=== PATIENT | male | born 1990 | race Caucasian/White ===

== ENCOUNTER 2016-11-04 06:33 | Inpatient (IN) | payer OTHER ==
--- NOTE | ~2016-11-04 | PA ---
Unit #: [id number] #: [id number] Patient: JESSICA COPPOLA [id number] [facility] [address] [place] [address] [id number] I MR#: [id number] NAME: JESSICA COPPOLA ROOM: P256 Age: 26 Sex: M Admission Date: 11/04/2016 : 1990 Date of Assessment: 11/05/2016 Attending Physician: Damon Thorpe M.D. Admitting Physician: Damon Thorpe M.D. Primary Care Physician: Primary Care Physician No PSYCHIATRIC ASSESSMENT DATE OF ASSESSMENT 11/05/2016. INFORMANTS Patient, reliable; [facility], reliable; [facility], reliable. CHIEF COMPLAINT Overdose. HISTORY OF PRESENT ILLNESS Mr. Coppola is a 26-year-old man, who apparently took an overdose when his girlfriend left him and took an overdose of medications belonging to his grandmother. He was evaluated at [facility] and could not contract for safety in the outpatient setting. [facility]. PAST PSYCHIATRIC HISTORY The patient denies any previous inpatient or outpatient psychiatric care. He has no current psychiatric medications. FAMILY PSYCHIATRIC HISTORY No reported family history of chemical dependence or substance abuse. SOCIAL HISTORY The patient is single and recently broke up with a girlfriend. He is a high-school graduate, but has had difficulty maintaining employment for the past couple of years. This has caused some ongoing financial problems and recent breakup with his girlfriend. PAST MEDICAL HISTORY No chronic medical problems. MEDICATIONS None currently. ALLERGIES No known medication allergies. SUBSTANCE USE HISTORY The patient reports some tobacco use, but no illegal drug use. MENTAL STATUS EXAMINATION The patient presented as a mildly disheveled man, who appeared his stated Unit #: [id number] #: [id number] Patient: JESSICA COPPOLA age. He was cooperative with the examination. His speech was spontaneous and easily understood. Musculoskeletal examination was calm. His mood was depressed with a congruent affect. He was alert and fully oriented. His memory and concentration were fair to good. His thought processes were goal directed with no active psychosis. He now denied suicidal ideation, intent, or plan. Insight and judgment, fair. Fund of knowledge and abstraction, fair. ASSETS AND LIABILITIES The patient knows local resources and presents willing to engage in treatment. Liabilities include difficulty with employment and recent overdose. ADMITTING DIAGNOSES AXIS I: Adjustment disorder with depressed mood. AXIS II: No diagnosis. AXIS III: Recent polypharmacy overdose. AXIS IV: AXIS V: PSYCHIATRIC PLAN The patient was admitted and placed on suicide precautions. Celexa 20 mg daily was initiated for treatment of depression. He was enrolled in psychotherapy groups and activities, and physical examination will be conducted. TREATMENT GOALS Resolution of SI, improvement in insight, and improvement in coping skills. DISCHARGE PLANNING Follow up with [facility] in the [facility]. ESTIMATED LENGTH OF STAY 5 days. Dictated by... Damon Thorpe M.D. FELIPE/jose TD: 12/18/2016 23:12 JOB #: [id number] PSYCHIATRIC ASSESSMENT Page 1 of 1 X Damon Thorpe MD X PSYCHIATRIC ASSESSMENT
--- NOTE | ~2016-11-04 | DS ---
Unit #: [id number] #: [id number] Patient: JESSICA COPPOLA [id number] [facility] [address] [place] [address] [id number] I MR#: [id number] NAME: JESSICA COPPOLA ROOM: P256 Age: 26 Sex: M Admission Date: 11/04/2016 : 1990 Discharge Date: 11/05/2016 Attending Physician: Damon Thorpe M.D. Primary Care Physician: Primary Care Physician No DISCHARGE SUMMARY REASON FOR ADMISSION Jessica is a 26-year-old man who became upset when his girlfriend terminated their relationship. He did an overdose of medications in his grandmother's home and went to [facility], where he was medically cleared. [facility] DIAGNOSTIC STUDIES LABORATORY RESULTS: None obtained. HOSPITAL COURSE Jessica was admitted and placed on suicide precautions. We initiated Celexa 20 mg daily for depression, although the patient stated that his suicidal ideation rapidly resolved and he felt somewhat ashamed of his overdose attempt and the drama surrounding it. The following day, he continued to contract for safety and was no longer holdable on an involuntary basis. He was discharged in stable condition. DISCHARGE DIAGNOSES AXIS I: Adjustment disorder with depressed mood. AXIS II: No diagnosis. AXIS III: Recent polypharmacy overdose. AXIS IV: AXIS V: DISCHARGE INSTRUCTIONS Follow up with [facility] in [place], [place]. DISCHARGE MEDICATIONS Celexa 20 mg daily for depression. CONDITION AT DISCHARGE Improved. PROGNOSIS Good. DIET AND ACTIVITY Ad santana. Dictated by... Unit #: [id number] #: [id number] Patient: JESSICA COPPOLA Damon Thorpe M.D. [facility]/abdiell TD: 12/18/2016 20:21 JOB #: [id number] DISCHARGE SUMMARY Page 1 of 1 X Damon Thorpe MD X DISCHARGE SUMMARY
--- NOTE | ~2016-11-04 | HP ---
Unit #: [id number] #: [id number] Patient: JESSICA COPPOLA [id number] [place] [address] [id number] I MR#: [id number] NAME: JESSICA COPPOLA ROOM: P256 Age: 25 Sex: M Admission Date: 11/04/2016 : 1990 Attending Physician: Damon Thorpe M.D. Admitting Physician: Damon Thorpe M.D. Primary Care Physician: Primary Care Physician No HISTORY AND PHYSICAL HISTORY OF PRESENT ILLNESS Jessica is a 25 year old admitted to [address] [place] [address] with depression and after an overdose of [id number] medication. He was charcoaled in the emergency room and when medically stable transferred to this facility for psychiatric care. PAST MEDICAL HISTORY Nothing significant. PAST SURGICAL HISTORY PE tubes ALLERGIES No known drug allergies. SOCIAL HISTORY Smokes one pack per day. Denies alcohol and illicit drug use. FAMILY HISTORY Medically noncontributory. REVIEW OF SYSTEMS CONSTITUTIONAL: No fever or chills. HEENT: Denies any sore throat, ear pain or runny nose. CARDIOVASCULAR: Denies chest pain, irregular heart rhythm or palpitations. CHEST: Denies shortness of breath or cough. No hemoptysis. GASTROINTESTINAL: Denies nausea, vomiting, diarrhea or chronic constipation. ENDOCRINE: Denies history of increased thirst or urination. No recent significant weight loss or gain. GENITOURINARY: Denies dysuria, frequency, or hematuria. SKIN: Denies any rashes. HEMATOLOGIC: Denies history of increased bleeding or bruising. MUSCULOSKELETAL: Denies any hot, swollen joints. No generalized muscle pain. NEUROLOGIC: Denies problems with vision or speech. No frequent, severe headaches. No numbness, tingling or weakness in any extremities. Denies loss of bladder or bowel control. CURRENT MEDICATIONS 1. Milk of Magnesia p.r.n. 2. Maalox p.r.n. Unit #: [id number] #: [id number] Patient: JESSICA COPPOLA 3. Tylenol p.r.n. 4. Celexa 20 mg daily 5. Desyrel 50 mg q.h.s. p.r.n. 6. Nicotine patch 14 mg daily PHYSICAL EXAMINATION GENERAL: Alert, well-nourished, in no apparent distress. VITAL SIGNS: Blood pressure 110/72, heart rate 80, respirations 16, temperature 98.6. WEIGHT: 185 pounds. HEIGHT: 5'11". SKIN: Warm and dry without rash or lesion. HEENT: Normocephalic. TMs not viewed. Oral and nasal passages clear. Conjunctivae clear. Pupils equal, round and reactive to light and accommodation. Extraocular movements intact. NECK: Supple without lymphadenopathy or thyromegaly. HEART: Regular rate and rhythm without murmur. LUNGS: Clear. ABDOMEN: Soft, nontender. : Not done. EXTREMITIES: No evidence of cyanosis, clubbing or edema. Moves all extremities without focal deficit. NEUROLOGICAL: Grossly within normal limits. Cranial Nerves: II: Visual warren are intact. III, IV AND : Extraocular movements are intact. Pupils are equal, round and reactive to light. V: Facial sensation is grossly normal. VII: Facial movements and expression are normal. VIII: Auditory acuity grossly intact. IX, X: Uvula is midline. Phonation is normal. XI: Patient shrugs shoulders and turns head normally. XII: Tongue protrudes in the midline. Sensory and Motor Function: Sensory and motor sensation is grossly normal. Motor: moves all extremities well. Coordination: Gait is normal. Deep Tendon Reflexes: Intact. IMPRESSION Psychiatric admission RECOMMENDATIONS PSYCHIATRIC: Per psychiatrist. MEDICAL: I see no contraindications to participating in facility's activities. MEDICAL PROGNOSIS Good. MEDICAL CONDITION Stable. Dictated by... Rebecca Aguilar P.A.-C. for Nemo Mccollum/anne-marie Unit #: [id number] #: [id number] Patient: JESSICA COPPOLA TD: 11/05/2016 00:10 JOB #: [id number] HISTORY AND PHYSICAL Page 1 of 1 X Rebecca Aguilar HISTORY AND PHYSICAL
== END 2016-11-05 12:45 | disposition home or self-care (01) | DRG 881 ==
LOC: P2L 06:33
DX: F43.21 Adjustment disorder with depressed mood (principal); F33.1 Major depressive disorder, recurrent, moderate; R45.851 Suicidal ideations; F17.210 Nicotine dependence, cigarettes, uncomplicated; T50.902D Poisoning by unspecified drugs, medicaments and biological substances, intentional self-harm, subsequent encounter